=== PATIENT | male | born 1990 | race Two or more races ===

== ENCOUNTER 2018-01-28 12:37 | Emergency (ER) | payer SELFPAY ==
[2018-01-28 12:46] VITALS: BMI 19.2
[2018-01-28] MEDS ORDERED: MAG HYDROX/AL HYDROX/SIMETH -MYLANTA- ORAL SUSPENSION PO ONE (13:09)
[2018-01-28] MEDS ORDERED: RANITIDINE HCL 150 MG TABLET (FP) PO ONE (13:09)
[2018-01-28] MEDS ORDERED: RANITIDINE HCL 150 MG TABLET (FP) ONE (13:15)
[2018-01-28] MEDS ORDERED: MAG HYDROX/AL HYDROX/SIMETH 30 ML UNIT-DOSE CUP ONE (13:15)
--- NOTE | 2018-01-28 13:22 | PDOC ---
Attending Attestation - Resident Resident Name: Isaac Cornejo - ED Attending Attestation I have performed the following: I have examined & evaluated the patient, The case was reviewed & discussed with the resident, I agree w/resident's findings & plan, Exceptions are as noted - HPI HPI: 01/28/18 14:12 The patient is a 27-year-old male with no significant past medical history, who presents to the emergency department complaining of 2 days of chest pain and shortness of breath. He describes the pain as constant, burning in sensation, located under the chest with no radiation, exacerbated with deep inspiration but unchanged by rest or exertion. He also reports having a rash present on the extensor surface of his bray, forearms, and behind the ears. Patient experienced 1 episode of vomiting yesterday that has now resolved. The patient denies any recent travel, recent periods of immobilization, or history of DVTs. He denies any use of exogenous hormones. The patient denies headache, and dizziness. Denies fevers, chills, diarrhea, and constipation. Denies dysuria, frequency, urgency, and hematuria. Allergies: NKA Past surgical history: None reported. Social history: No reported cigarette, alcohol, or drug use. - Physicial Exam PE: 01/28/18 14:13 GENERAL: Awake, alert, and fully oriented, in no acute distress HEAD: No signs of trauma EYES: PERRLA, EOMI, sclera anicteric, conjunctiva clear ENT: Auricles normal inspection, hearing grossly normal, nares patent, oropharynx clear without exudates. Moist mucosa NECK: Normal ROM, supple, no lymphadenopathy, JVD, or masses LUNGS: Breath sounds equal, clear to auscultation bilaterally. No wheezes, and no crackles HEART: Regular rate and rhythm, normal S1 and S2, no murmurs, rubs or gallops ABDOMEN: Soft, nontender, normoactive bowel sounds. No guarding, no rebound. No masses EXTREMITIES: Normal range of motion, no edema. No clubbing or cyanosis. No cords , erythema, or tenderness BACK: No midline spinal tenderness in cervical/thoracic/lumbar region NEUROLOGICAL: Normal speech, cranial nerves intact, negative pronator drift, 5/ 5 strength in all 4 extremities, normal sensation to light touch in all 4 extremities, normal cerebellar exam, normal gait, normal reflexes and tone SKIN: Warm, Dry, normal turgor, no rashes or lesions noted. - Medical Decision Making 01/28/18 13:53 27yo M with no sig PMH presents to the ED with chest pain he describes as burning. Pain hurts more with deep inspiration. Vitals and exam wnl. EKG non ischemic. Likely NICOLAS vs MSK pain. Pt meets no PERC criteria. Will check single trop, basic labs, XR, treat sxs and reassess. <Denisha Morillo - Last Filed: 01/28/18 14:12> - Medical Decision Making 01/28/18 16:00 Chest X-Ray was reviewed by Dr. Morillo and overread by Radiology. IMPRESSION: No definite infiltrate is identified. <Magaly Bautista - Last Filed: 01/28/18 16:09> Heart Score/ECG Review #1 01/28/18 13:56 Twelve-lead EKG was performed and reviewed by me. Normal sinus rhythm, rate 80. Normal axis and intervals. No ST elevations or T-wave inversions. <Denisha Morillo - Last Filed: 01/28/18 14:12>
--- NOTE | 2018-01-28 13:22 | PDOC ---
History of Present Illness - General Chief Complaint: Chest Pain Stated Complaint: CHEST PAIN Time Seen by Provider: 01/28/18 12:54 History Source: Patient Exam Limitations: Language Barrier - History of Present Illness Initial Comments: 01/28/18 13:16 Patient is a 27M with no significant medical history here today complaining of chest pain for the past two days. He states that he vomited once yesterday and then developed a burning substernal pain that radiates to his abdomen. Denies fevers, chills. Endorses associated shortness of breath. Patient states that his chest pain is worsened with inspiration. He denies prior blood clots, leg swelling, and recent travel. He denies pain with urination. Last bowel movement was yesterday. Past History - Past Medical History Allergies/Adverse Reactions: Allergies Allergy/AdvReac Type Severity Reaction Status Date / Time No Known Allergies Allergy Verified 01/28/18 12:43 CVA: No COPD: No DVT: No - Suicide/Smoking/Psychosocial Hx Smoking History: Never smoked Hx Alcohol Use: No Drug/Substance Use Hx: No Substance Use Type: None Review of Systems - Review of Systems Comments:: 01/28/18 13:18 GENERAL/CONSTITUTIONAL: No fever or chills. No weakness. HEAD, EYES, EARS, NOSE AND THROAT: No change in vision. No sore throat. CARDIOVASCULAR: +chest pain +shortness of breath RESPIRATORY: No cough, wheezing, or hemoptysis. GASTROINTESTINAL: +nausea, vomiting. No diarrhea or constipation. GENITOURINARY: No dysuria, frequency, or change in urination. MUSCULOSKELETAL: No joint or muscle swelling or pain. No neck or back pain. SKIN: No rash NEUROLOGIC: No headache, vertigo, loss of consciousness, or change in strength/ sensation. ENDOCRINE: No increased thirst. No abnormal weight change HEMATOLOGIC/LYMPHATIC: No anemia, easy bleeding, or history of blood clots. ALLERGIC/IMMUNOLOGIC: No hives or skin allergy. *Physical Exam - Vital Signs Last Vital Signs Temp Pulse Resp BP Pulse Ox 98.4 F 78 15 133/77 98 01/28/18 12:43 01/28/18 12:43 01/28/18 12:43 01/28/18 12:43 01/28/18 12:43 - Physical Exam Comments: 01/28/18 13:19 GENERAL: Awake, alert, and fully oriented, in no acute distress HEAD: No signs of trauma, normocephalic, atraumatic EYES: PERRLA, EOMI, sclera anicteric, conjunctiva clear ENT: Auricles normal inspection, hearing grossly normal, nares patent, oropharynx clear without exudates. Moist mucosa NECK: Normal ROM, supple, no lymphadenopathy, JVD, or masses LUNGS: No distress, speaks full sentences, clear to auscultation bilaterally HEART: Regular rate and rhythm, normal S1 and S2, no murmurs, rubs or gallops, peripheral pulses normal and equal bilaterally. ABDOMEN: Minimally tender in epigastrium, soft. No guarding, no rebound. No masses EXTREMITIES: Normal inspection, Normal range of motion, no edema. No clubbing or cyanosis. NEUROLOGICAL: Cranial nerves II through XII grossly intact. Normal speech, normal gait, no focal sensorimotor deficits SKIN: Warm, Dry, normal turgor, no rashes or lesions noted. ED Treatment Course - LABORATORY CBC & Chemistry Diagram: 01/28/18 13:36 01/28/18 13:36 - RADIOLOGY Radiology Studies Ordered: Category Date Time Status CHEST PA & LAT [RAD] Stat Radiology 01/28/18 13:15 Ordered Medical Decision Making - Medical Decision Making 01/28/18 13:20 Patient is 27M with no significant medical history here today complaining of chest pain and shortness of breath. Chest pain is atypical, consistent with GERD. No significant abdominal tenderness. Patient's rash is consistent with psoriasis. For chest pain, will treat with ranitidine and maalox, will evaluate with labs, ekg, cxr. Will set up with primary care for rash. EKG shows normal sinus rhythm with rate of 80. No st elevations/depressions. No significant t wave abnormalities. Normal axis. Normal QRS/MT/QTc intervals. 01/28/18 15:43 Laboratory Tests 01/28/18 01/28/18 13:36 13:36 WBC 10.3 H Hgb 14.5 Hct 42.6 Plt Count 366 AST 40 H ALT 87 H Troponin I < 0.02 CBC normal. CMP shows mildly elevated liver enzymes. Troponin undetectable. Patient advised of liver results. Chest pain has improved with maalox and ranitidine. Instructed to follow up with PCP. *DC/Admit/Observation/Transfer Diagnosis at time of Disposition: Chest pain - Discharge Dispostion Disposition: HOME Condition at time of disposition: Good Decision to Admit order: No - Referrals Referrals: [facility] [Provider Group] - Patient Instructions Printed Discharge Instructions: DI for Chest Pain Additional Instructions: You were seen today in the ED for chest pain. Your liver enzymes were mildly elevated today. Please follow up with a primary care physician in the next week for your rash and liver tests. - Post Discharge Activity
[2018-01-28 14:18] LABS: BASO % 0.4 % (0-2.0); EOS % 1.3 % (0-4.5); HEMATOCRIT 42.6 % (35.4-49); HEMOGLOBIN 14.5 GM/dL (11.7-16.9); LYMPH % 12.6 % (8-40); MCH 28.3 pg (25.7-33.7); MCHC 34.1 g/dl (32.0-35.9); MEAN PLT VOLUME 9.3 fl (7.5-11.1); MONO % 6.1 % (3.8-10.2); NEUT % 79.6 % (42.8-82.8); PLATELET COUNT 366 K/MM3 (134-434); RBC 5.13 M/mm3 (4.00-5.60); RDW 14.8 % (11.9-15.9); WHITE BLOOD COUNT 10.3 K/mm3 (4.0-10.0)
[2018-01-28 14:44] LABS: ANION GAP 6 (8-16); BILIRUBIN,TOTAL 0.2 mg/dL (0.2-1.0); BLOOD UREA NITROGEN 10 mg/dL (7-18); CALCIUM 8.8 mg/dL (8.5-10.1); CHLORIDE 105 mmol/L (98-107); CO2 28 mmol/L (21-32); CREATININE 0.7 mg/dL (0.7-1.3); GLUCOSE,RANDOM 87 mg/dL (74-106); MAGNESIUM 2.2 mg/dL (1.8-2.4); POTASSIUM 4.3 mmol/L (3.5-5.1); SGOT/AST 40 U/L (15-37); SGPT/ALT 87 U/L (12-78); SODIUM 139 mmol/L (136-145); TOT PROT 8.1 g/dl (6.4-8.2)
[2018-01-28 14:47] LABS: ALK PHOS 144 U/L (45-117)
[2018-01-28 15:22] LABS: INR 1.04 (0.82-1.09); PROTHROMBIN TIME (PATIENT) 11.7 SEC (9.7-13.0)
[2018-01-28 16:20] VITALS: BP 117/94; PULSE 73; TEMP 98.3
--- NOTE | 2018-01-29 16:21 | EKG ---
Test Reason : Blood Pressure : / mmHG Vent. Rate : 080 BPM Atrial Rate : 080 BPM P-R Int : 142 ms QRS Dur : 092 ms QT Int : 344 ms P-R-T Axes : 037 084 047 degrees QTc Int : 396 ms NORMAL SINUS RHYTHM NORMAL ECG NO PREVIOUS ECGS AVAILABLE Confirmed by MAHENDRA ROSADO MD ([id number]) on 01/29/2018 4:21:04 PM Referred By: Confirmed By:MAHENDRA ROSADO MD
== END 2018-01-28 16:20 | disposition home or self-care (01) ==
LOC: JER 12:37
DX: R07.9 Chest pain, unspecified (principal)
CPT/HCPCS: 36415; 71046-TC-FY; 80053; 82550; 82553; 83735; 84484; 85025; 85610; 93005; 93010; 99283-25